=== PATIENT | male | born 1945 | race Caucasian/White ===

== ENCOUNTER 2017-08-08 17:09 | Emergency (ER) | payer MEDICARE, BC ==
[~2017-08-08 17:09] MED LIST: Calcium Chloride 1 GM/10 ML Abboject SYRINGE ONE; EPINEPHrine 1 MG/10 ML Abboject SYRINGE ONE; Heparin 10,000 UNITS/ 10 ML VIAL ONE; Sodium Bicarb 50 MEQ/50 ML Abboject 8.4% SYRINGE ONE; Sodium Chloride 0.9% 1,000 ML BAG ONE
--- OUTSIDE RECORDS SUMMARY | 2017-08-08 17:12 | XMS | Clinical Summary ---
:1945 Author Organization [facility] Address [address] [place] [address] Phone Care Team Providers Name Role Phone , Primary Care Provider Unavailable Allergies Not on File Current Medications Not on file Active Problems Not on file Social History Tobacco Use Types Packs/Day Years Used Date Never Assessed Sex Assigned at Date Recorded Not on file Last Filed Vital Signs Not on file Plan of Treatment Not on file Results Not on filefrom Last 3 Months
--- NOTE | 2017-08-08 19:46 | RAD ---
AP VIEW OF THE CHEST: 08/08/17 INDICATION: History of trauma. COMPARISON: Prior exam dated 03/30/17. FINDINGS: There is marked cardiomegaly and mild to moderate pulmonary vascular congestion which is new. There is postsurgical change of prior CABG which is similar. Patient intubated with ET tube tip seen 3.8 c m above the level the iza. There is extensive subcutaneous emphysema overlying the chest farias bi laterally. There is a small right sided pneumothorax. No left sided pneumothorax is evident. IMPRESSION: 1. Small right sided apical pneumothorax. 2. Cardiomegaly with pulmonary vascular congestion suggests CHF. 3. Extensive subcutaneous emphysema. POS: [facility]
== END 2017-08-08 17:42 | disposition expired ==
LOC: ERS 17:09
DX: I46.9 Cardiac arrest, cause unspecified (principal)
CPT/HCPCS: 31500; 36556; 71010; 96374; 96375; 96376; J0171; J1644; J7050